=== PATIENT | female | born 1995 | race Caucasian/White ===

== ENCOUNTER → 2020-01-20 14:02 | Outpatient (BNVA) | payer BC, SELFPAY | PROVIDERS: Family Provider Family Medicine; Visit Provider Nurse Practitioner Family | DX: Z20.828 Contact with and (suspected) exposure to other viral communicable diseases (principal); J06.9 Acute upper respiratory infection, unspecified | CPT/HCPCS: 87635 ==

== ENCOUNTER → 2022-06-03 10:39 | Outpatient (BNVA) | payer OTHER, SELFPAY | PROVIDERS: Family Provider Family Medicine; PCP Family Medicine; Visit Provider Family Medicine | DX: Z51.81 Encounter for therapeutic drug level monitoring (principal); Z13.220 Encounter for screening for lipoid disorders; R10.2 Pelvic and perineal pain; N73.9 Female pelvic inflammatory disease, unspecified | CPT/HCPCS: 80053; 80061; 85025; 86141; 87491; 87591; 87624; 87661 ==

== ENCOUNTER 2022-06-04 22:17 | Emergency (ER) | payer OTHER, SELFPAY ==
[2022-06-04 22:36] VITALS: BP 162/104; PULSE 87; RESP 18; TEMP 37.2; O2SAT 99; BMI 43.8
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
[2022-06-05 01:23] VITALS: RESP 16
[2022-06-05] MEDS: ondansetron 4 MG Tablet PO (01:23)
[2022-06-05] MEDS: HYDROmorphone 1 mg/mL INJ 1 mL IM (01:23)
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
== END 2022-06-05 02:22 | disposition home or self-care (01) ==
PROVIDERS: Emergency Provider Emergency Medicine; PCP Family Medicine
DX: S06.0XAA Concussion with loss of consciousness status unknown, initial encounter (principal); S10.93XA Contusion of unspecified part of neck, initial encounter; S00.83XA Contusion of other part of head, initial encounter; Z87.891 Personal history of nicotine dependence; Y04.2XXA Assault by strike against or bumped into by another person, initial encounter
CPT/HCPCS: 70450; 70486; 72125; 96372; 99284; J1170; Q0162

== ENCOUNTER 2022-06-05 16:16 | Emergency (ER) | payer OTHER, SELFPAY ==
[2022-06-05] VITALS (7 sets, daily range): BP systolic 131–172; BP diastolic 75–105; PULSE 59–82; RESP 14–16; TEMP 36.5; O2SAT 94–100; BMI 42.3
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
[2022-06-05] MEDS: sodium chloride 0.9% 1,000 ML 999 ML IV (16:49)
[2022-06-05] MEDS: ketorolac 30 mg/mL INJ 15 MG IVP (16:50)
[2022-06-05] MEDS: metoclopramide 5 mg/mL SDV 2 mL 10 MG IVP (16:51)
[2022-06-05] MEDS: diphenhydrAMINE 50 mg/mL SDV 1mL 12.5 MG IVP (16:52)
[2022-06-05 16:58] LABS: Glucose Point of Care 85 mg/dL (70-110)
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
[2022-06-05] MEDS: morphine 4 mg/mL SDV 1 mL IVP (18:40)
== END 2022-06-05 19:50 | disposition home or self-care (01) ==
PROVIDERS: Emergency Provider Emergency Medicine; PCP Family Medicine
DX: R51.9 Headache, unspecified (principal); F07.81 Postconcussional syndrome; H66.91 Otitis media, unspecified, right ear; F17.210 Nicotine dependence, cigarettes, uncomplicated
CPT/HCPCS: 36416; 70450; 82962; 96361; 96374; 96375; 99285; J1200; J1885; J2270; J2765; J7030

== ENCOUNTER → 2023-02-09 08:00 | Outpatient (BNVA) | payer OTHER, SELFPAY | PROVIDERS: PCP Family Medicine; Referring Provider Family Medicine; Visit Provider Obstetrics & Gynecology | DX: N92.0 Excessive and frequent menstruation with regular cycle (principal) | CPT/HCPCS: 83001; 84146; 84443; 84702; 85025 ==

== ENCOUNTER → 2023-02-22 10:17 | Outpatient (BNVA) | payer OTHER, SELFPAY | PROVIDERS: PCP Family Medicine; Visit Provider Obstetrics & Gynecology | DX: R10.2 Pelvic and perineal pain (principal) | CPT/HCPCS: 76830 ==

== ENCOUNTER → 2023-04-07 11:14 | Outpatient (BNVA) | payer OTHER, SELFPAY | PROVIDERS: PCP Family Medicine; Visit Provider Registered Nurse Neonatal Intensive Care | DX: R39.9 Unspecified symptoms and signs involving the genitourinary system (principal); N12 Tubulo-interstitial nephritis, not specified as acute or chronic | CPT/HCPCS: 81000 ==

== ENCOUNTER 2023-05-30 09:51 | Day surgery (SDC) | payer OTHER, SELFPAY ==
--- NOTE | 2023-05-25 08:38 | ANES.PREANE2 ---
Pre-Anesthetic Assessment Height/Weight: Height 1.73 m Operation Date: 05/30/23 11:10 Proposed Procedures p Hysteroscopy, dilation and curettage 20105,72657 N93.9(Not Applicable) - Jose Rodriguez MD s Dilation And Curettage (D&C)(Not Applicable) - Jose Rodriguez MD Familial anesthetic complications: hard to wake up Social Tobacco (vapes) Exam alert, oriented x 3, clear to auscultation bilaterally and regular rate & rhythm Airway Dentition: other (1 missing) Anesthetic Plan ASA status: 1 Anesthesia: General Risk of > 500 ml blood loss (7ml/kg in children): No Medications/Allergies Home Medications Medication Instructions Recorded Confirmed Last Taken Type sertraline 100 mg tablet 100 mg PO DAILY #30 tabs 04/05/23 05/25/23 05/25/23 Rx Allergies Allergy/AdvReac Type Severity Reaction Status Date / Time promethazine [From Phenergan] Allergy ALGY-Anaphy Verified 04/07/23 11:14 laxis [facility] Anesthesia Medical History Psychiatric care No significant past medical history Surgical History History of tubal ligation 05/2017 - Michael History of cholecystectomy 2008 No significant past surgical history Social History Smoking and tobacco/nicotine status: current every day tobacco/nicotine user Alcohol intake: never Substance/Drug Use: current Current occupation: Works at [employer] Anesthesia Cardiac Studies: No Data to Display
[2023-05-30] VITALS (9 sets, daily range): BP systolic 101–149; BP diastolic 57–87; PULSE 54–73; RESP 16–18; TEMP 36.1–36.5; O2SAT 92–99; BMI 39.5
--- NOTE | 2023-05-30 10:09 | P.ANESUD_ITS ---
Pre-Anesthetic Update Pre-Anesthetic Assessment: Date of Surgery/Procedure: 05/30/23 Preop Vanda gnosis: abnormal uterine bleeding, pelvic pain Proposed Procedure: Operation Date: 05/30/23 11:20 Proposed Procedures p Hysteroscopy, dilation and curettage [id number] N93.9(Not Applicable) - Jose Rodriguez MD s Dilation And Curettage (D&C)(Not Applicable) - Jose Rodriguez MD s Laparoscopy Diagnostic(Not Applicable) - Jose Rodriguez MD Any changes to Pre-Anesthetic Assessment?: No Last Intake: Intake Last Liquid Date 05/29/23 Last Liquid Time 22:00 Last Solid Date 05/29/23 Last Solid Time 22:00 Vitals: Temperature 97.7 F 05/30/23 10:05 Temperature Source Temporal Artery S can 05/30/23 10:05 Pulse Rate 73 05/30/23 10:05 Respiratory Rate 16 05/30/23 10:05 Blood Pressure 145/87 05/30/23 10:05 Blood Pressure Josselin n 106 05/30/23 10:05 Pulse Oximetry 99 05/30/23 10:05 Oxygen Delivery Me thod Room Air 05/30/23 10:06 Exam: Pre-Anes Outpt Exam: alert, oriented x 3, clear to auscultation bilaterally and regular rate & rhythm Cardiac Studies: No Data to Display
[2023-05-30] MEDS: scopolamine 1.5 Patch 1 PATCH TRANSDERMA (10:18)
[2023-05-30] MEDS: sodium chloride 0.9% 500 ML IV (10:19)
[2023-05-30] MEDS: sodium chloride 0.9% 1,000 ML 30 ML IV (10:19)
[2023-05-30 10:30] LABS: OR HCG Qualitative Urine Negative (Negative)
[2023-05-30 10:40] LABS: Basophils % 0.8 %; Eosinophils % 0.8 %; Hematocrit 45.8 % (36-47); Lymphocytes # 1.5 10^3/uL (0.8-4.8); Lymphocytes % 30.5 %; Mean Corpuscular HGB Conc 32.8 g/dL (30-55); Mean Corpuscular Hemoglobin 29.4 pg (27-33); Mean Corpuscular Volume 89.8 fl (85-98); Mean Platelet Volume 12.1 fL (7.4-10.4); Monocytes # 0.3 10^3/uL (0.2-0.9); Monocytes % 5.3 %; Neutrophils # 3.05 10^3/uL (1.8-7.7); Neutrophils % 62.4 %; Nucleated Red Blood Cells % 0 %; Platelet Count 182 10^3/cmm (157-399); Red Cell Distribution Width 12.5 % (12.1-15.1); White Blood Count 4.89 10^3/uL (3.29-11.43)
[2023-05-30 10:43] LABS: Add Urine Microscopic? YES; Bilirubin Urine Neg (Negative); Blood Urine 3+ (Negative); Glucose Urine UA Norm (Normal); Ketones Urine Negative (Negative); Leukocyte Esterase Urine Negative (Negative); Nitrate Urine Negative (Negative); Protein Urine Neg (Negative); Specific Gravity, Urine 1.015 (1.005-1.030); Urine Appearance Clear (CLEAR); Urine Color Yellow (Yellow); Urobilinogen Urine Norm (Negative); pH Urine 7 (5-7)
[2023-05-30 10:55] LABS: Add Urine Culture? No; Mucus Urine 1+ /hpf; RBC Urine 0-4 /hpf (0-2); Squamous Epithelial Cell Urine 0-4 /hpf (0-5); Transitional Epi Cells Urine 0-4 /hpf; WBC Urine 0-4 /hpf (0-5)
[2023-05-30 11:00] LABS: Alanine Aminotransferase 18 U/L (0-33); Albumin Level 4.2 g/dL (3.5-5.2); Alkaline Phosphatase 81 U/L (35-105); Blood Urea Nitrogen 12 mg/dL (6-20); Calcium 9.3 mg/dL (8.5-10.5); Carbon Dioxide 24 mmol/L (22-29); Chloride 105 mmol/L (98-107); Creatinine Clr Calc Pharmacy 186.7641; Globulin 2.7 g/dL (1.3-4.6); Glomerular Filtration Rate 118.2 mL/min (90-130); Glucose 87 mg/dL (65-115); Osmolality Calculated 285 mOsm/kg (285-295); Sodium 138 mmol/L (136-145); Total Bilirubin 0.6 mg/dL (0.15-1.2); Total Protein 6.9 g/dL (6.6-8.7)
[2023-05-30 11:36] LABS: Aspartate Amino Transferase 22 U/L (0-32)
--- NOTE | 2023-05-30 11:51 | W.PM.OPSUD ---
Surgery/Procedure H&P Update DATE OF PROCEDURE: May 30, 2023 DATE H&P PERFORMED: 05/29/23 H&P UPDATE INFORMATION: I have reviewed H&P completed within last 30 days, I have examined patient prior to procedure and No changes to prior documentation PREOP DIAGNOSIS: abnormal uterine bleeding, pelvic pain PLANNED PROCEDURE: Operation Date: 05/30/23 11:20 Proposed Procedures p Hysteroscopy, dilation and curettage [id number] N93.9(Not Applicable) - Jose Rodriguez MD s Dilation And Curettage (D&C)(Not Applicable) - Jose Rodriguez MD s Laparoscopy Diagnostic(Not Applicable) - Jose Rodriguez MD
[2023-05-30] MEDS: ceFAZolin 2,000 MG in sodium chloride 0.9% (plus) 50 ML 100 MG IV (12:31)
[2023-05-30] MEDS: lidocaine-epi 2% PF 1:200,000 20 mL SDV INJECTION (13:08)
--- NOTE | 2023-05-30 13:35 | P.OP_ITS ---
Operative Report Date of procedure: May 30, 2023 Pre-op diagnosis: Abnormal uterine bleeding Pelvic pain Post-op diagnosis: same Post-op findings: Normal pelvic organs, no pathology Proliferative endometrium Procedure done: Diagnostic laparoscopy Hysteroscopy Dilation and curettage via MyoSure Specimens removed/disposition: Endometrial curettings Surgeon: Jose Rodriguez MD Estimated blood loss (mL): 10 IV fluids (mL): 1,000 Urine output (mL): 200 Complications: None Procedure: After informed consent, the patient was taken to the operating room where general anesthesia was administered. The patient was examined under anesthesia and found to have a normal uterus with normal adnexa. She was placed in the dorsal lithotomy position and prepped and draped in sterile fashion. Pre- Procedure Time-Out verifying the correct patient identity, correct procedure verified with consent, correct site and side, correct patient position, availability of correct implants and any special equipment or requirements was performed and acknowledge by the OR team. A weighted speculum was placed in the vagina, and the anterior lip of cervix was grasped with the single toothed tenaculum. A uterine manipulator was advanced into the endocervical. Tenaculum was removed after uterine manipulator was secured. The speculum was removed from the vagina. An intraumbilical incision was made with a scalpel. While tenting up on the abdomen, a Verres needle with sleeve was admitted into the intra-abdominal cavity. A saline drop test was performed and noted to be within normal limits. Pneumoperitoneum was attained with 4 liters of carbon dioxide. The Verres needle was removed. A 5 mm trocar and sleeve were admitted into the abdomen and laparoscopic confirmation of location was achieved, A second incision was made 3 cm above the symphysis pubis, and a 5 mm trocar and sleeve were admitted into the abdomen under direct, laparoscopic visualization without complication. A survey revealed normal abdominal anatomy but pelvic survey shows normal uterus, left and right adnexa. A 5 mm blunt probe was advanced through the second trocar sleeve, and light manipulation of ovaries and uterus to assess the posterior aspects was performed. Carbon dioxide was allowed to escape from the abdomen. The instruments were removed, and skin cover with 3-0 Vicryl and Dermabond. The instruments were removed from the vagina, and excellent hemostasis was noted and proceeded with hysteroscopy. A sterile weight speculum was placed in the vagina. The uterus was then gently sounded to 8 cm, and the cervix was dilated. The 0 degrees MyoSure hysteroscope was advanced gently to the uterine fundus while visualizing the monitor. Survey of the uterine cavity showed: Proliferative endometrium, the fundus shows normal proliferative endometrium; left ostium was visualized, and lateral wall with proliferative endometrium; right ostium visualized, and lateral wall with proliferative endometrium; anterior and posterior srivastava are with proliferative endometrium; endocervical canal is normal. The MyoSure device was advanced and the direct visualization the endometrium was morcellated without complication. At the end of morcellation the fluid deficit was 405 mL and was estimated at approximately 200 mL were on t he floor. There was minimal bleeding noted and the tenaculum removed with goad hemostasis noted. The patient tolerated the procedure well. The patient tolerated the procedure well, and sponge, lap and needle count were correct times two. The patient taken to the recovery room in good condition.
[2023-05-30] MEDS: ondansetron 2 mg/ML SDV 2 mL 4 MG IVP (13:50)
[2023-05-30] MEDS: fentaNYL 50 mcg/mL INJ 2mL IVP (13:55)
[2023-05-30] MEDS: HYDROcodone-acetaminophen 5-325 mg Tablet 1 TAB PO (14:35)
--- NOTE | 2023-05-30 15:00 | ANE.PACU2 ---
Inpatient post-anesthesia follow up: Airway intact: Yes Vital signs: Temperature 97.4 F Pulse Rate 64 Respiratory Rate 18 Blood Pressure 101/60 Pulse Oximetry 96 Oxygen Delivery Me thod Room Air Oxygen Flow Rate 6 Fraction of Inspir ed Oxygen Hydration adequate: Yes Nausea and vomiting: No Pain level: 1 Mental status: Baseline
--- NOTE | 2023-05-30 15:05 | PC.NURSE ---
Patient discharged in stable condition with mother at bedside, patient iv removed, vital signs within normal limtis, patient denies questions at this time, patient received pain medication from pharmacy, pt wheeled out to private vehicle. patient to call clinic withs follow up visit. patient given x1 pain pill for c/o abd cramping and pain. reviewed with patient s/sx of infection.
== END 2023-05-30 15:00 | disposition home or self-care (01) ==
PROVIDERS: PCP Family Medicine; Visit Provider Obstetrics & Gynecology
PROC: 0UJD8ZZ Inspection of Uterus and Cervix, Via Natural or Artificial Opening Endoscopic (ICD-10-PCS; CPT 58555; principal; 2023-05-30 11:00)
PROC: (CPT 58120; 2023-05-30 11:00)
PROC: (CPT 49320; 2023-05-30 11:00)
DX: N92.1 Excessive and frequent menstruation with irregular cycle (principal); F17.200 Nicotine dependence, unspecified, uncomplicated
CPT/HCPCS: 58558; 36415; 80053; 81001; 81025; 84703; 85025; 86850; 86900; 88305; J0690; J1100; J1170; J2250; J2405; J2704; J2710; J3010; J3490; J7030; J7040

== ENCOUNTER → 2024-03-16 18:14 | Outpatient (BNVA) | payer OTHER, SELFPAY | PROVIDERS: PCP Family Medicine | DX: S99.912A Unspecified injury of left ankle, initial encounter (principal); W22.8XXA Striking against or struck by other objects, initial encounter | CPT/HCPCS: 73610 ==

== ENCOUNTER → 2024-04-25 09:54 | Outpatient (BNVA) | payer OTHER, SELFPAY | PROVIDERS: PCP Family Medicine; Visit Provider Family Medicine | DX: R39.9 Unspecified symptoms and signs involving the genitourinary system (principal) | CPT/HCPCS: 81000 ==

== ENCOUNTER → 2024-06-05 11:17 | Outpatient (BNVA) | payer OTHER, SELFPAY | PROVIDERS: PCP Family Medicine; Visit Provider Family Medicine | DX: E55.9 Vitamin D deficiency, unspecified (principal); Z00.00 Encounter for general adult medical examination without abnormal findings; R53.81 Other malaise; R53.83 Other fatigue; Z51.81 Encounter for therapeutic drug level monitoring | CPT/HCPCS: 80053; 82306; 84439; 84443; 85025; 86592; 87491; 87591; 87624; 87661; 87806 ==

== ENCOUNTER → 2024-07-25 13:33 | Outpatient (BNVA) | payer SELFPAY | PROVIDERS: PCP Family Medicine; Visit Provider Obstetrics & Gynecology | DX: R87.619 Unspecified abnormal cytological findings in specimens from cervix uteri (principal) | CPT/HCPCS: 81025 ==

== ENCOUNTER → 2024-08-26 13:49 | Outpatient (BNVA) | payer OTHER, SELFPAY | PROVIDERS: PCP Family Medicine; Visit Provider Obstetrics & Gynecology | DX: R87.619 Unspecified abnormal cytological findings in specimens from cervix uteri (principal); N72 Inflammatory disease of cervix uteri | CPT/HCPCS: 81025; 88305; 88342 ==

== ENCOUNTER → 2024-10-16 09:52 | Outpatient (BNVA) | payer OTHER, SELFPAY | PROVIDERS: PCP Family Medicine; Visit Provider Family Medicine | DX: Z01.818 Encounter for other preprocedural examination (principal) | CPT/HCPCS: 80053; 85007; 85027 ==

== ENCOUNTER 2024-10-22 09:31 | Inpatient (IN) | payer SELFPAY ==
[2024-10-22] VITALS (21 sets, daily range): BP systolic 104–173; BP diastolic 64–95; PULSE 53–80; RESP 12–20; TEMP 36.3–36.8; O2SAT 94–100; BMI 36.5
--- NOTE | 2024-10-22 00:50 | P.HP_ITS ---
Same Day Surgery H&P Indication for Procedure/HPI DATE OF PROCEDURE: October 22, 2024 CHIEF COMPLAINT/INDICATIONFOR SURGICAL PROCEDURE: 29 y.o. h/o constant pelvic pain and frequent abnormal uterine bleeding now scheduled for hysterectomy PREOP DIAGNOSIS: menometrorrhagia PLANNED PROCEDURE: Operation Date: 10/22/24 07:00 Proposed Procedures p Laparoscopic Assist Vaginal Hysterectomy 34149, N94.6 N92.1 N93.9 R10.2 R87.619(Not Applicable) - Hamzah Fu MD Medications/Allergies* Home Medications ?Medication ?Instructions ?Recorded ?Confirmed ?Type multivitamin 1 tab PO DAILY 06/05/2410/04 History Lactobacillus 25 billion cap PO 07/25/24 10/16/24 His tory cell-Bifido 25 billion beda-RPC-wipqi capsule biotin 2,500 mcg capsule 2,500 mcg PO DAILY 07/25/24 10/21/24 History ferrous sulfate 325 mg (65 mg 325 mg PO DAILY 07/25/24 10/21/24 History iron) tablet (FeroSul) Allergies/Adverse Reactions Allergy/AdvReac Type Severity Reaction Status Date / Time promethazine (From Phenergan) Allergy ALGY-Anaphy Verified 10/21/24 11:08 laxis Pertinent History/Comorbid Conditions* Medical History (Updated 07/25/24 @ 16:48 by Akin Olson MD) No significant past medical history Surgical History (Updated 06/05/24 @ 10:53 by Akin Olson MD) History of dilation and curettage History of tubal ligation 05/2017 - Albino History of cholecystectomy 2008 No significant past surgical history Family History (Updated 08/26/24 @ 13:58 by Denita Russell CMA) Uterine cancer Grandmother Social History Smoking and tobacco/nicotine status: current every day tobacco/nicotine user e-cigarettes Alcohol intake: current Alcohol intake frequency: holidays/special occasions only Substance/Drug Use: current Current occupation: Works at [employer] Pertinent Exam Findings alert, oriented x 3, clear to auscultation bilaterally and regular rate & rhythm Recommendations Surgery/Procedure today Coding Level of Care Code Acute Code for Chg Fwd
[2024-10-22 06:19] LABS: OR HCG Qualitative Urine Negative (Negative)
--- NOTE | 2024-10-22 06:44 | ANES.PREANE2 ---
Pre-Anesthetic Assessment Height/Weight: Height 1.73 m Weight 108.862 kg Temp Pulse Resp BP Pulse Ox O2 Del Method 97.4 F L 71 18 122/78 98 Room Air 10/22/24 06:19 10/22/24 06:19 10/22/24 06:19 10/22/24 06:19 10/22/24 06:19 10/22/24 06:21 Preop Diagnosis: menorrhagia Operation Date: 10/22/24 07:00 Proposed Procedures p Laparoscopic Assist Vaginal Hysterectomy 65776, N94.6 N92.1 N93.9 R10.2 R87.619(Not Applicable) - Hamzah Fu MD Familial anesthetic complications: PONV Was Beta Kasie taken within 24 hours: N/A Was Clonidine taken within 24 hours: N/A Last intake: Intake Last Liquid Date 10/21/24 Last Liquid Time 18:00 Last Solid Date 10/21/24 Last Solid Time 18:00 Social No alcohol and No tobacco Exam alert, oriented x 3, clear to auscultation bilaterally and regular rate & rhythm L TMJ on chart review Airway Mallampati: Class I Dentition: full Metabolic Morbid Obesity Anesthetic Plan ASA status: 2 Anesthesia: General Risk of > 500 ml blood loss (7ml/kg in children): No Medications/Allergies Home Medications ?Medication ?Instructions ?Recorded ?Confirmed ?Last Taken ?Type multivitamin 1 tab PO DAILY 06/05/24 10/21/24 10/20/24 History cholecalciferol (vitamin D3) 50 50 mcg PO DAILY #30 caps 06/18/24 10/21/24 10/20/24 Rx mcg (2,000 unit) capsule citalopram 20 mg tablet 20 mg PO DAILY #30 tabs 07/10/24 10/21/24 10/20/24 Rx Lactobacillus 25 billion cap PO 07/25/24 10/16/24 10/20/24 History cell-Bifido 25 billion cswb-ZTW-[id number] capsule biotin 2,500 mcg capsule 2,500 mcg PO DAILY 07/25/24 10/21/24 10/20/24 History ferrous sulfate 325 mg (65 mg 325 mg PO DAILY 07/25/24 10/21/24 10/20/24 History iron) tablet (FeroSul) Allergies Allergy/AdvReac Type Severity Reaction Status Date / Time promethazine (From Phenergan) Allergy ALGY-Anaphy Verified 10/22/24 06:18 laxis [facility] Anesthesia Medical History No significant past medical history Surgical History History of dilation and curettage History of tubal ligation 05/2017 - Albino History of cholecystectomy 2008 No significant past surgical history Family History (Updated 08/26/24 @ 13:58 by Denita Russell CMA) Grandmother Uterine cancer Social History Smoking and tobacco/nicotine status: current every day tobacco/nicotine user e-cigarettes Alcohol intake: current Alcohol intake frequency: holidays/special occasions only Substance/Drug Use: current Current occupation: Works at [employer] Female Reproductive History Date of last menstrual period: 10/04/24
--- NOTE | 2024-10-22 06:51 | W.PM.OPSUD ---
Surgery/Procedure H&P Update DATE OF PROCEDURE: October 22, 2024 DATE H&P PERFORMED: 10/22/24 H&P UPDATE INFORMATION: I have reviewed H&P completed within last 30 days, I have examined patient prior to procedure and No changes to prior documentation PREOP DIAGNOSIS: menorrhagia PLANNED PROCEDURE: Operation Date: 10/22/24 07:00 Proposed Procedures p Laparoscopic Assist Vaginal Hysterectomy 92785, N94.6 N92.1 N93.9 R10.2 R87.619(Not Applicable) - Hamzah Fu MD
[2024-10-22] MEDS: ceFAZolin 2,000 mg SDV 2000 MG IVP (06:59)
[2024-10-22] MEDS: metroNIDAZOLE IV 500 MG/100 ML PREMIX 100 MG IV (07:00)
--- NOTE | 2024-10-22 08:13 | SUR.OPER ---
called and updated mother of surgical progress.
[2024-10-22] MEDS: BUPivacaine 0.5% INJ 30 mL XX (08:15)
[2024-10-22] MEDS: BUPivacaine liposome 13.3 mg/mL SDV 20 mL 266 MG INFILTRATI (08:16)
--- NOTE | 2024-10-22 09:15 | PM.OP2 ---
Brief Operative Note Date of procedure: 10/22/24 Pre-op diagnosis: menorrhagia Post-op diagnosis: same Procedure Done: total abdominal hysterectomy Surgeon: Hamzah Fu Estimated blood loss (mL): 200 Complications: none Post-op Plan: floor
[2024-10-22] MEDS: ondansetron 2 mg/ML SDV 2 mL 4 MG IVP ×2 (09:40→18:47)
[2024-10-22] MEDS: fentaNYL 50 mcg/mL INJ 2mL IVP (09:53)
--- NOTE | 2024-10-22 10:05 | PM.OP ---
Operative Report Date of procedure: October 22, 2024 Pre-op diagnosis: menometrorrhagia Post-op diagnosis: same Post-op findings: Normal-sized uterus Normal fallopian tubes Normal ovaries Normal and intact bladder Procedure done: Total abdominal hysterectomy Bilateral salpingectomy Specimens removed/disposition: uterus bilateral fallopian tubes Surgeon: Hamzah Fu MD Anesthesia: General Estimated blood loss (mL): 200 Complications: none Findings: see above Condition: stable Disposition: PACU Brief History: 29 y.o. with chronic menometrorrhagia Procedure: The patient was taken to the operating room and placed supine on the table. General endotracheal anesthesia was induced. The abdomen was prepped and draped in the usual sterile fashion. A lawler catheter was placed which drained clear urine. A pfannenstiel incision was made and carried down through skin and subcutaneous tissue and fascia. The fascia was sharply incised. The rectus muscles were and the abdomen was entered bluntly in the midline. The pelvic contents were visualized and examined. An Cuauhtemoc-O retractor was placed. The bowels were packed out of the way. The Ligasure device was used throughout for vessel sealing and cutting. The hysterectomy was begun by dividing and ligating the round ligaments bilaterally. The infundibulopelvic ligaments were divided and skeletonized bilaterally. The ovaries were preserved by dividing the uterus from the uteroovarian ligaments. The vesicouterine peritoneal fold was incised in a transverse curvilinear fashion and sharply dissected downward mobilizing the bladder off the lower uterine segment. The uterine vessels were skeletonized and bilaterally divided and ligated. The procedure was carried down on both sides of the uterus until the cardinal uterosacral ligament was reached. The cervix was then incised. The vaginal cuff was identified and the mucosa was from the cervix. In this fashion, the uterus was removed leaving the vaginal cuff. The vaginal cuff was identified and the mucosa was sewn with O-Vicryl. The pelvis was inspected and irrigated. There was no bleeding. Bilateral salpingectomy was performed using the Ligasure device. There was no bleeding. The abdominal packs were removed as was the retractor. The fascia was then closed with a continuous stitch of O-Vicryl. The subcutaneous tissue was irrigated and inspected for hemostasis. The skin was then reapproximated using Insorb absorbable subcuticular skin angle. The patient was then placed supine, extubated, and taken to the recovery room. Postoperative condition: stable EBL: 200 cc Complications: none Sponge, needle, instruments counts were correct x two.
--- NOTE | 2024-10-22 10:10 | ANE.PACU2 ---
Inpatient post-anesthesia follow up: Airway intact: Yes Vital signs: Temperature 97.6 F Pulse Rate 60 Respiratory Rate 16 Blood Pressure 99/61 Pulse Oximetry 99 Oxygen Delivery Me thod Room Air Oxygen Flow Rate 8 Fraction of Inspir ed Oxygen Hydration adequate: Yes Nausea and vomiting: No Pain level: 1 Mental status: Baseline
--- NOTE | 2024-10-22 10:30 | PC.NURSE ---
1022 - accepted into room 10 with Tamara RN at side - BP 145/87 pulse 75 temp 97.6 - 0299%
[2024-10-22] MEDS: HYDROcodone-acetaminophen 5-325 mg Tablet PO ×2 (12:26→18:39)
--- NOTE | 2024-10-22 18:57 | PC.NURSE ---
Pt receieved 2 norco tabs at 1839 for pain, approximately 5min later pt became nauseous and vomited a moderate amount. This nurse was unable to tell if the tablets were in the vomit as well.
[2024-10-22] MEDS: morphine 4 mg/mL SDV 1 mL 2 MG IVP (19:03)
[2024-10-22] MEDS: LORazepam 1 MG/0.5 ML injection IVP (20:37)
[2024-10-22] MEDS: fentaNYL 50 mcg/mL INJ 2mL 25 MCG IVP (20:39)
[2024-10-23 03:02] VITALS: BP 99/61; PULSE 60; RESP 16
[2024-10-23 06:00] VITALS: TEMP 36.4
[2024-10-23 06:07] LABS: Hematocrit 38.0 % (36-47); Hemoglobin 12.70 g/dL (11.27-16.99); Mean Corpuscular HGB Conc 33.4 g/dL (30-55); Mean Corpuscular Hemoglobin 29.7 pg (27-33); Mean Corpuscular Volume 88.8 fl (85-98); Platelet Count 165 10^3/cmm (157-399); Red Blood Count 4.28 10^6/uL (3.85-5.65); White Blood Count 11.42 10^3/uL (3.29-11.43)
[2024-10-23 09:29] VITALS: BP 138/74; PULSE 82; RESP 16; TEMP 36.6; TEMP 36.7; O2SAT 98
[2024-10-23] MEDS: HYDROcodone-acetaminophen 5-325 mg Tablet PO (11:58)
[2024-10-23 14:04] VITALS: BP 117/72; PULSE 82; RESP 16; TEMP 36.8; O2SAT 98
--- NOTE | 2024-10-23 14:10 | P.PN_ITS ---
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 General comfortable Lungs: clear Cor: RRR Abd: soft, nontender. Wound clean and dry Ext: normal Urinary Catheter Management: Melgar: Cath Placed During This Visit: yes, but has since been removed by the nurse Reason for Continuing Indwelling Catheter: Decision to DC Catheter Urinary Catheter Date of Insertion: 10/22/24 Date Urinary Catheter Removed: 10/23/24 Time Urinary Catheter Discontinued: 06:00 Data 10/23/24 06:00 A&P Assessment and plan 1. History of total abdominal hysterectomy: POD #1 TINO, bilateral salpingectomy Doing well Plan discharge to home today Call / return if fever, chills, nausea, vomiting, abdominal pain, vaginal bleeding, painful urination, chest pain, shortness of breath, leg swelling PDMP PDMP Reviewed: Last Reviewed 10/23/24 13:51 EDT by Hamzah Fu MD Attestations 2 Medical Necessity Statement*: patient s/p hysterectomy, plan discharge to home today Coding Level of Care Code Acute Code for Chg Fwd Diagnoses History of total abdominal hysterectomy Z90.710
--- NOTE | 2024-10-23 14:20 | PM.OBGYDC ---
Discharge Providers LITHODUPLICATOR OPERATOR Date of Admission: 10/22/24 09:31 Date of Discharge: 10/23/24 Attending Provider at Admission: Hamzah Fu MD Attending Provider at Discharge: Hamzah Fu MD Consults: none Primary LITHODUPLICATOR OPERATOR: Hamzah Fu MD Primary Care Provider: Akin Olson MD Diagnoses at Discharge Discharge Diagnosis 1. History of total abdominal hysterectomy: Details from hospital stay: 29 y.o. with h/o chronic pelvic pain and menometrorrhagia admitted for hysterectomy total abdominal hysterectomy and bilateral salpingectomy was done without any complications patient did well postop and was discharged to home on the first postoperative day Reason for Visit Reason for Visit: N94.6 Brief History: 29 y.o. with h/o chronic pelvic pain and menometrorrhagia admitted for hysterectomy Hospital Course Hospital Course 29 y.o. with h/o chronic pelvic pain and menometrorrhagia admitted for hysterectomy total abdominal hysterectomy and bilateral salpingectomy was done without any complications patient did well postop and was discharged to home on the first postoperative day Physical Exam Narrative: Weight 240 lbs; 5?8? General comfortable Lungs: clear Cor: RRR Abd: soft, nontender. Wound clean and dry Ext: normal Urinary Catheter Management: Melgar: Cath Placed During This Visit: yes, but has since been removed by the nurse Reason for Continuing Indwelling Catheter: Decision to DC Catheter Urinary Catheter Date of Insertion: 10/22/24 Date Urinary Catheter Removed: 10/23/24 Time Urinary Catheter Discontinued: 06:00 History History History 5 Term 4 0 Miscarriages/Ectopic 1 Living Children 4 Discharge Data Studies Completed and Pending Completed Studies During Hospitalization Category Date Time Status Pathology: Surgical [PTH] Routine Pth 10/22/24 08:41 Completed Laboratory Results WBC 11.42 10^3/uL (3.29-11.43) 10/23/24 06:00 RBC 4.28 10^6/uL (3.85-5.65) 10/23/24 06:00 Hgb 12.70 g/dL (11.27-16.99) 10/23/24 06:00 Hct 38.0 % (36-47) 10/23/24 06:00 MCV 88.8 fl (85-98) 10/23/24 06:00 MCH 29.7 pg (27-33) 10/23/24 06:00 MCHC 33.4 g/dL (30-55) 10/23/24 06:00 RDW 12.2 % (12.1-15.1) 10/23/24 06:00 Plt Count 165 10^3/cmm (157-399) 10/23/24 06:00 MPV 11.6 fL (7.4-10.4) H 10/23/24 06:00 Urine HCG, Qual Negative (Negative) 10/22/24 06:12 Blood Type A Positive 10/22/24 06:28 Rho(D) Type Rh positive 10/22/24 06:28 Antibody Screen Negative 10/22/24 06:28 Procedures Performed Total abdominal hysterectomy and bilateral salpingectomy Vitals Last Vital Signs Temp 98.3 F 10/23/24 14:04 Pulse 82 10/23/24 14:04 Resp 16 10/23/24 14:04 BP 117/72 10/23/24 14:04 Pulse Ox 98 10/23/24 14:04 O2 Del Method Room Air 10/23/24 09:29 O2 Flow Rate 8 10/22/24 09:29 Results Labs OB ([facility]): Blood Type A Positive 10/22/24 Antibody Screen Negative 10/22/24 Hct, (36-47) 42.6 % 10/30/24 Hgb, (11.27-16.99) 14.00 g/dL 10/30/24 Rho(D) Type Rh positive 10/22/24 Plt Count, (157-399) 242 10^3/cmm 10/30/24 HIV 1&2 Ab & HIV 1 Ag, (Non-Reactiv) Non-reactive 06/05/24 TSH, (0.27-4.20) 3.69 uIU/mL 06/05/24 Free T4, (0.82-1.77) 0.98 ng/dL 06/05/24 HCG, Qual, (Negative) Negative 08/26/24 Pap Smear Interpret See note A 06/05/24 Discharge Plan Discharge Patient Disposition: Home Condition: Stable Prescriptions: Continued ferrous sulfate [FeroSul] 325 mg (65 mg iron) tablet 325 mg PO DAILY biotin 2,500 mcg capsule 2,500 mcg PO DAILY multivitamin Tablet 1 tab PO DAILY citalopram 20 mg tablet 20 mg PO DAILY Qty: 30 6RF cholecalciferol (vitamin D3) 50 mcg (2,000 unit) capsule 50 mcg PO DAILY Qty: 30 6RF No Action ketorolac 10 mg tablet 10 mg PO TID PRN (Reason: pain) Qty: 60 1RF Discharge Order = DC NOW: Discharge Order (Routine); Ordered 10/23/24 Ordered By: Hamzah Fu Referrals: Hamzah Fu MD [Physician, LITHODUPLICATOR OPERATOR] - 10/31/24 11:00 am Discharge Diet: Usual diet Discharge Activity: Increase activity as tolerated Patient Instructions: Acute Wound Care (DC), Opioid Safety (DC), Hysterectomy (GEN), Vaginal Hysterectomy (DC), OB Discharge Report, OB Food/Drug Interaction Guide, Opioid Safety, Post Anesthesia Care, Patient Portal & Ravindra Instructions Discharge Attestations LITHODUPLICATOR OPERATOR Time Spent in Discharge Care*: less than 30 min Coding Level of Care Code Acute Code for Chg Fwd Diagnoses History of total abdominal hysterectomy Z90.710
== END 2024-10-23 14:40 | disposition home or self-care (01) | DRG 743 ==
LOC: OBGYN 15:36
PROVIDERS: Anesthesiology; Admitting Provider Obstetrics & Gynecology; PCP Family Medicine; Visit Provider Obstetrics & Gynecology
PROC: 0UT90ZZ Resection of Uterus, Open Approach (ICD-10-PCS; CPT 58150; 2024-10-22 07:00)
DX: N92.0 Excessive and frequent menstruation with regular cycle (principal); F17.290 Nicotine dependence, other tobacco product, uncomplicated
CPT/HCPCS: 36415; 81025; 85027; 86850; 86900; 88307; A4216; J0666; J0690; J1100; J1171; J1200; J1885; J2060; J2250; J2270; J2405; J2704; J3010; J3490; J7030; J7040; J7121; J9999

== ENCOUNTER 2024-10-26 00:45 | Emergency (ER) | payer OTHER, SELFPAY ==
[2024-10-26 01:03] VITALS: BP 170/92; PULSE 94; RESP 18; TEMP 36.6; O2SAT 99; BMI 34.0
--- NOTE | 2024-10-26 01:27 | CTR_ITS ---
PROCEDURE INFORMATION: Exam: CT Abdomen And Pelvis With Contrast Exam date and time: 10/26/2024 1:52 AM Age: 29 years old Clinical indication: Abdominal pain; Localized; Right lower quadrant (rlq); Prior surgery; Surgery date: 3-7 days post-operative; Surgery type: Total hysterectomy 10/22/2024. Gb; C/O rlq/pelvic pain post total hysterectomy on 10/22/2024. ; Additional info: Rlq pain S/P hysterectomy, radicular pain to rle TECHNIQUE: Imaging protocol: Computed tomography of the abdomen and pelvis with contrast. Radiation optimization: All CT scans at this facility use at least one of these dose optimization techniques: automated exposure control; mA and/or kV adjustment per patient size (includes targeted exams where dose is matched to clinical indication); or iterative reconstruction. Contrast material: OMNI 350; Contrast volume: 100 ml; Contrast route: INTRAVENOUS (IV); COMPARISON: US transvaginal [id number] 02/22/2023 10:27 AM RADIATION DOSE METRICS: Total DLP (mGy-cm): 1078.77 FINDINGS: Liver: No discrete liver lesions are apparent. Smooth hepatic contour. Gallbladder and biliary ducts: Prior cholecystectomy with resultant biliary ductal prominence. Pancreas: No evidence of pancreatitis. No ductal dilation. Spleen: The spleen is enlarged. Adrenal glands: Adrenal glands are within expected limits. Kidneys and ureters: Subcentimeter left renal cortical cyst. Right kidney unremarkable. No stones or hydronephrosis. Stomach and bowel: Small bowel is normal caliber. No obstruction. Large bowel within normal limits. No inflammatory wall thickening or abnormal bowel dilatation. Appendix: No evidence of appendicitis. Intraperitoneal space: No free air. No significant fluid collection. Vasculature: No abdominal aortic aneurysm. Lymph nodes: No pathologically enlarged lymph nodes by CT size criteria. Urinary bladder: Tiny focus of gas in the urinary bladder which is otherwise unremarkable. This is presumably from recent instrumentation. Reproductive: Postsurgical changes of very recent hysterectomy. No evidence of abscess. Some residual fat stranding and trace fluid in the hysterectomy bed. There is also some residual soft tissue gas in the superficial tissues of the low ventral abdomen/pelvis at site of incision. Bones/joints: No acute osseous abnormalities. Soft tissues: See Reproductive finding. CT/CT abdomen pelvis w con* [id number] IMPRESSION: 1. Very recent hysterectomy changes persists of the superficial tissues of the ventral lower abdomen/pelvis and within the hysterectomy bed. No evidence of abscess, however. 2. Tiny focus of urinary bladder lumen gas, presumably from recent instrumentation. 3. Mild splenomegaly. COMMENTS: Consistent with the [employer]'s Incidental Findings Committee white paper (J Am Gonzalo Radiol 2018): Any incidental renal lesion less than 1 cm or classified as too small to characterize, or any incidental cystic renal lesion characterized as simple-appearing, is likely benign. No follow-up imaging is recommended for these lesions per consensus recommendations based on imaging criteria.
--- NOTE | 2024-10-26 01:28 | W.ED.ABDPA2 ---
HPI - Abdominal Pain General: Chief Complaint: Abdominal Pain Stated Complaint: surg tues. no poop, suden knot today n groin Time Seen by Provider: 10/26/24 01:12 History of Present Illness: 29-year-old female who is status post hysterectomy now 5 days ago. This was done via abdominal approach. She had done well until last evening. She started complain of right lower quadrant pain. It radiates into her back. She is nauseated. Pain radiates into her right hip, and down her right lower extremity where she is experiencing intermittent paresthesias. She is not experiencing spine pain. She states that she has run a temperature of 99 degrees or so on and off all week. She has a cough productive of some frothy clear to white sputum intermittently she denies trauma or strain to the area prior to increased pain. No discharge from her surgical site. Related Data Home Medications ?Medication ?Instructions ?Recorded ?Confirmed multivitamin 1 tab PO DAILY 06/05/24 10/21/24 Lactobacillus 25 billion cap PO 07/25/24 10/16/24 cell-Bifido 25 billion ghyo-ULK-jssao capsule biotin 2,500 mcg capsule 2,500 mcg PO DAILY 07/25/24 10/21/24 ferrous sulfate 325 mg (65 mg 325 mg PO DAILY 07/25/24 10/21/24 iron) tablet (FeroSul) Previous Rx's ?Medication ?Instructions ?Recorded cholecalciferol (vitamin D3) 50 50 mcg PO DAILY #30 caps 06/18/24 mcg (2,000 unit) capsule citalopram 20 mg tablet 20 mg PO DAILY #30 tabs 07/10/24 oxycodone-acetaminophen 5 mg-325 1 tab PO Q6H PRN pain #30 tabs 25 mg tablet (Percocet) ketorolac 10 mg tablet 10 mg PO TID PRN pain #10 tabs 10/26/24 Allergies Allergy/AdvReac Type Severity Reaction Status Date / Time promethazine (From Phenergan) Allergy ALGY-Anaphy Verified 10/22/24 06:18 laxis [facility], [facility] ED PFSH: Medical History No significant past medical history Surgical History History of dilation and curettage History of tubal ligation 05/2017 - Albino History of cholecystectomy 2009 No significant past surgical history Family History (Updated 08/26/24 @ 13:58 by Denita Russell CMA) Grandmother Uterine cancer Social History Smoking and tobacco/nicotine status: current every day tobacco/nicotine user e-cigarettes Alcohol intake: current Alcohol intake frequency: holidays/special occasions only Substance/Drug Use: current Current occupation: Works at [employer] Physical Exam Const: GENERAL APPEARANCE: cooperative and anxious; not frail appearing HENMT: COMMON NORMALS: normocephalic, atraumatic and Normal external nose present HEAD & SCALP: normocephalic and atraumatic FACE & SINUS: normal facial exam and face symmetric NOSE: Normal external nose present Eye: COMMON NORMALS: Equal, round and reactive pupils present and EOMs intact bilaterally PUPIL: Yes Equal, round and reactive pupils present Neck/C-Spine: GENERAL: Yes trachea midline Chest: CHEST: Yes Symmetrical chest wall rise Resp: COMMON NORMALS: normal respiratory effort, No retractions, No use of accessory muscles and clear to auscultation bilaterally AUSCULTATION: clear to auscultation bilaterally Cardio: COMMON NORMALS: regular rate and regular rhythm RATE: regular rate RHYTHM: regular rhythm GI: COMMON NORMALS: Soft to palpation PALPATION: Yes Soft to palpation, Yes Tenderness to palpation present (GI) Details: RLQ and Yes Guarding due to palpation present (GI) in the RLQ Extremity: COMMON NORMALS: no pedal edema Neuro: JAZMINE COMA SCALE: document GCS findings Jazmine coma scale eye opening: Spontaneous [place] coma scale verbal response: Orientated [place] coma scale motor response: Obey commands Jazmine coma scale total score: 15 SENSORY EXAM: Yes extremities (intact) Psych: COMMON NORMALS: speech normal SPEECH: Yes normal speech Skin: NARRATIVE SKIN EXAM: Incision is closed. No leakage. Some ecchymosis surrounding. No erythema or cellulitis. Course Vital Signs: Vital signs: Vital Signs Temperature 98 F 10/26/24 01:03 Pulse Rate 76 10/26/24 02:33 Respiratory Rate 18 10/26/24 01:44 Blood Pressure 138/63 10/26/24 02:33 Pulse Oximetry 96 10/26/24 02:33 Oxygen Delivery Me thod Room Air 10/26/24 02:33 MDM - Abdominal Pain Medical Decision Making Pain is much improved after morphine and Toradol. Vitals are normal currently. She is afebrile. CBC is normal. BMP is normal. She does have some fat stranding surrounding her incision on CT scan. No overt cellulitis on exam in viewing of the incision. There is no fluid collection or abscess by CT. No evidence of complication. With improvement in her pain, she will be placed on Toradol, continue her pain medication. This should help. Return for worsening symptoms. Call her doctor Monday. Lab Data 10/26/24 01:27 10/26/24 01:27 Labs/Radiology: Radiology Impressions Abdomen/Pelvis CT 10/26/24 01:27 IMPRESSION: 1. Very recent hysterectomy changes persists of the superficial tissues of the ventral lower abdomen/pelvis and within the hysterectomy bed. No evidence of abscess, however. 2. Tiny focus of urinary bladder lumen gas, presumably from recent instrumentation. 3. Mild splenomegaly. COMMENTS: Consistent with the [employer]'s Incidental Findings Committee white paper (J Am Gonzalo Radiol 2018): Any incidental renal lesion less than 1 cm or classified as too small to characterize, or any incidental cystic renal lesion characterized as simple-appearing, is likely benign. No follow-up imaging is recommended for these lesions per consensus recommendations based on imaging criteria. Laboratory Results WBC 7.22 10^3/uL (3.29-11.43) 10/26/24 01:27 RBC 4.25 10^6/uL (3.85-5.65) 10/26/24 01:27 Hgb 12.50 g/dL (11.27-16.99) 10/26/24 01:27 Hct 38.0 % (36-47) 10/26/24 01:27 MCV 89.4 fl (85-98) 10/26/24 01:27 MCH 29.4 pg (27-33) 10/26/24 01: MCHC 32.9 g/dL (30-55) 10/26/24 01:27 RDW 12.2 % (12.1-15.1) 10/26/24 01:27 Plt Count 165 10^3/cmm (157-399) 10/26/24 01:27 MPV 10.9 fL (7.4-10.4) H 10/26/24 01:27 Neut % (Auto) 70.4 % 10/26/24 01:27 Lymph % (Auto) 19.3 % 10/26/24 01:27 [place] % (Auto) 6.4 % 10/26/24 01:27 Eos % (Auto) 3.5 % 10/26/24 01:27 Baso % (Auto) 0.3 % 10/26/24 01:27 Neut # (Auto) 5.09 10^3/uL (1.8-7.7) 10/26/24 01:27 Lymph # (Auto) 1.4 10^3/uL (0.8-4.8) 10/26/24 01: [place] # (Auto) 0.5 10^3/uL (0.2-0.9) 10/26/24 01:27 Eos # (Auto) 0.3 10^3/uL (0.0-0.8) 10/26/24 01: Baso # (Auto) 0.0 10^3/uL (0.0-0.1) 10/26/24 01:27 Nucleated RBC % (auto) 0 % 10/26/24 01: Nucleated RBCs # 0.0 /100WBC 10/26/24 01:27 Sodium 137 mmol/L (136-145) 10/26/24 01:27 Potassium 3.8 mmol/L (3.5-5.1) 10/26/24 01:27 Chloride 101 mmol/L (98-107) 10/26/24 01:27 Carbon Dioxide 26 mmol/L (22-29) 10/26/24 01:27 Anion Gap 13.8 (5-19) 10/26/24 01:27 BUN 12 mg/dL (6-20) 10/26/24 01:27 Creatinine 0.7 mg/dL (0.5-0.9) 10/26/24 01:27 GFR Calculation 98.3 mL/min (90-130) 10/26/24 01:27 Glucose 103 mg/dL (65-115) 10/26/24 01:27 Calculated Osmolality 284 mOsm/kg (285-295) L 10/26/24 01:27 Lactic Acid 0.6 mmol/L (0.5-2.2) 10/26/24 01:27 Calcium 9.0 mg/dL (8.5-10.5) 10/26/24 01:27 Total Bilirubin 0.4 mg/dL (0.15-1.2) 10/26/24 01:27 AST 14 U/L (0-32) 10/26/24 01:27 ALT 17 U/L (0-33) 10/26/24 01:27 Alkaline Phosphatase 74 U/L (35-105) 10/26/24 01:27 C-Reactive Protein 67.6 mg/L (0.0-4.9) H 10/26/24 01:27 Total Protein 7.0 g/dL (6.6-8.7) 10/26/24 01: Albumin 4.0 g/dL (3.5-5.2) 10/26/24 01: Globulin 3.0 g/dL (1.3-4.6) 10/26/24 01: Lipase 15 U/L (13-60) 10/26/24 01:27 Urine Color Yellow (Yellow) 10/26/24 02:25 Urine Appearance Clear (CLEAR) 10/26/24 02:25 Urine pH 7.0 (5-7) 10/26/24 02:25 Ur Specific [place] 1.039 (1.005-1.030) H 10/26/24 02:25 Urine Protein Negative (Negative) 10/26/24 02:25 Urine Glucose (UA) Negative (Normal) 10/26/24 02:25 Urine Ketones Negative (Negative) 10/26/24 02:25 Urine Blood Negative (Negative) 10/26/24 02:25 Urine Nitrate Negative (Negative) 10/26/24 02:25 Urine Bilirubin Negative (Negative) 10/26/24 02:25 Urine Urobilinogen 1.0 mg/dL (Negative) 10/26/24 02:25 Ur Leukocyte Esterase Negative (Negative) 10/26/24 02:25 Urine RBC 0-2 /hpf (0-2) 10/26/24 02:25 Urine WBC 0-5 /hpf (0-5) 10/26/24 02:25 Ur Squamous Epith Cells 0-5 /hpf (0-5) 10/26/24 02:25 Amorphous Sediment Not Reportable 10/26/24 02:25 Urine Bacteria None seen /hpf (NONE) 10/26/24 02:25 Hyaline Casts 0-4 /lpf H 10/26/24 02:25 All radiology interpretation(s) finalized by discharge Discharge Plan Discharge Patient Disposition: Home Clinical Impression: Post-operative pain, Meralgia paresthetica of right side Condition: Stable Prescriptions: New ketorolac 10 mg tablet 10 mg PO TID PRN (Reason: pain) Qty: 10 0RF No Action ferrous sulfate [FeroSul] 325 mg (65 mg iron) tablet 325 mg PO DAILY biotin 2,500 mcg capsule 2,500 mcg PO DAILY Lacto no.05-Uq[place]uk-DGC-larch 25B cell-25B cell-50 mg capsule PO multivitamin Tablet 1 tab PO DAILY citalopram 20 mg tablet 20 mg PO DAILY Qty: 30 6RF cholecalciferol (vitamin D3) 50 mcg (2,000 unit) capsule 50 mcg PO DAILY Qty: 30 6RF oxycodone-acetaminophen [Percocet] 5-325 mg tablet 1 tab PO Q6H PRN (Reason: pain) Qty: 30 0RF Discharge Orders: Discharge ED (Routine); Ordered 10/26/24 Ordered By: Chay Jhaveri Referrals: Hamzah Fu MD [Physician, ROD POINTER] - 1-3 days Akin Olson MD [Primary Care Provider, Family Practice] Patient Instructions: Pain Management After Surgery (DC), Opioid Safety, Pain Management, Patient Portal & Ravindra Instructions Activity Restrictions/Additional Instructions: Alternate medication prescribed with medication you were prescribed after surgery. Ice may help the area that is tender. Return for fever greater than 100 ?F, vomiting liquids or medications, worsening pain despite treatment, any other concerning symptoms. Call your surgeon Monday and let them know you were seen here. They may wish to see you sooner than your scheduled appointment. Print Language: Slovak Coding Level of Care Code ED Cooker Pie Filling for Tom Hirsch
[2024-10-26 01:33] LABS: Hematocrit 38.0 % (36-47); Hemoglobin 12.50 g/dL (11.27-16.99); Mean Corpuscular HGB Conc 32.9 g/dL (30-55); Mean Corpuscular Hemoglobin 29.4 pg (27-33); Mean Corpuscular Volume 89.4 fl (85-98); Nucleated Red Blood Cells % 0 %; Platelet Count 165 10^3/cmm (157-399); Red Blood Count 4.25 10^6/uL (3.85-5.65); White Blood Count 7.22 10^3/uL (3.29-11.43)
[2024-10-26] MEDS: ondansetron 2 mg/ML SDV 2 mL 4 MG IVP (01:42)
[2024-10-26 01:44] VITALS: RESP 18; O2SAT 99
[2024-10-26] MEDS: morphine 4 mg/mL SDV 1 mL IVP ×2 (01:44→03:50)
[2024-10-26] MEDS: iohexol 350 mg/mL 500 mL Btl (per mL) IV (01:55)
[2024-10-26 01:58] LABS: Alanine Aminotransferase 17 U/L (0-33); Albumin Level 4.0 g/dL (3.5-5.2); Alkaline Phosphatase 74 U/L (35-105); Anion Gap 13.8 (5-19); Aspartate Amino Transferase 14 U/L (0-32); Blood Urea Nitrogen 12 mg/dL (6-20); Calcium 9.0 mg/dL (8.5-10.5); Carbon Dioxide 26 mmol/L (22-29); Chloride 101 mmol/L (98-107); Creatinine Clr Calc Pharmacy 151.1034; Globulin 3.0 g/dL (1.3-4.6); Glucose 103 mg/dL (65-115); Lactic Sepsis W/Reflex 0.6 mmol/L (0.5-2.2); Lipase 15 U/L (13-60); Osmolality Calculated 284 mOsm/kg (285-295); Potassium 3.8 mmol/L (3.5-5.1); Sodium 137 mmol/L (136-145); Total Protein 7.0 g/dL (6.6-8.7)
[2024-10-26 02:33] VITALS: BP 138/63; PULSE 76; O2SAT 96
[2024-10-26 02:40] LABS: Glucose Urine UA Negative (Normal); Nitrate Urine Negative (Negative)
[2024-10-26 02:45] LABS: Add Urine Microscopic? YES
[2024-10-26 02:48] LABS: Specific Gravity, Urine 1.039 (1.005-1.030)
[2024-10-26 03:50] VITALS: RESP 16; O2SAT 95
[2024-10-26 03:51] VITALS: BP 124/68; PULSE 73; RESP 16; O2SAT 95
[2024-10-26 04:10] VITALS: BP 120/65; PULSE 61; RESP 16; O2SAT 95
== END 2024-10-26 04:14 | disposition home or self-care (01) ==
PROVIDERS: Emergency Provider Emergency Medicine; PCP Family Medicine
DX: G89.18 Other acute postprocedural pain (principal); G57.11 Meralgia paresthetica, right lower limb; F17.290 Nicotine dependence, other tobacco product, uncomplicated
CPT/HCPCS: 36415; 74177; 80053; 81001; 83605; 83690; 85025; 86140; 96361; 96374; 96375; 96376; 99285; J1885; J2270; J2405; J7030

== ENCOUNTER 2024-10-30 07:36 | Emergency (ER) | payer OTHER, SELFPAY ==
[2024-10-30 07:39] VITALS: BP 158/102; PULSE 100; RESP 18; TEMP 36.7; O2SAT 100; BMI 34.0
[2024-10-30 08:00] VITALS: BP 152/89; PULSE 100; RESP 19; O2SAT 100
--- NOTE | 2024-10-30 08:00 | CT_ITS ---
WS: [id number] CT ABDOMEN PELVIS TECHNIQUE: Contrast-enhanced CT of the abdomen and pelvis with coronal and sagittal reformatted images. CLINICAL INFORMATION: abd pain/postop pain-hysterectomy COMPARISON: 10/26/2024 DLP: 1073.[address] scans at [facility] use at least one of these dose optimization techniques: automated exposure control; mA and/or kV adjustment per patient size (includes targeted exams where dose is matched to clinical indication); or iterative reconstruction. FINDINGS: Recent postoperative changes hysterectomy. Postoperative changes in the pelvis with a small amount of free fluid. No evidence of increasing fluid or abscess. No large hematoma in the hysterectomy bed. Induration in the pelvic subcutaneous soft tissues along the surgical site increased from previous. Correlation for cellulitis. Small amount of fluid in this area. Thickening and enhancement of the vaginal cuff presumably postoperative. No visualized large hematoma. Sigmoid diverticulosis. Normal appendix in the RIGHT lower quadrant. Fatty liver. Cholecystectomy. Normal spleen. Normal portal vein and splenic vein. Tiny esophageal hiatal hernia. Normal pancreatic parenchymal enhancement. Adrenal glands are normal. No hydronephrosis in either kidney. LEFT renal cyst. Lung bases are well aerated. Normal caliber abdominal aorta. Fat-containing umbilical hernia. IMPRESSION 1. Recent postoperative changes hysterectomy. No evidence of increasing free fluid or hematoma in the pelvis. Small amount of residual postoperative changes in the pelvis. 2. Induration in the subcutaneous soft tissues along the surgical site increased from previous with a small amount of fluid. Recommend correlation for cellulitis. 3. Thickening and enhancement of the vaginal cuff presumed postoperative. No visualized large hematoma. 4. No other significant changes compared to previous.
--- NOTE | 2024-10-30 08:02 | ED_ITS ---
HPI - Abdominal Pain 2 General: Chief Complaint: Vaginal Bleeding Stated Complaint: 8 days post op hysterectomy, bleeding, abd pain Time Seen by Provider: 10/30/24 07:39 History of Present Illness: 29-year-old female presents emergency ro om with complaints of abdominal pain and vaginal bleeding. She is 8 days postop Total abdominal hysterectomy. She began to have pain and cramping overnight she is constipated over the weekend and was seen in the emergency room She states she is passing clots per vagina. She denies any dysuria urgency or frequency no fever sweats or chills. Total abdominal hysterectomy was done for menorrhagia. Associated Symptoms: Reports constipation and nausea; Denies chills, dysuria, fever(s) and vomiting Related Data Home Medications ?Medication ?Instructions ?Recorded ?Confirmed multivitamin 1 tab PO DAILY 06/05/2410/05 biotin 2,500 mcg capsule 2,500 mcg PO DAILY 07/25/24 10/30/24 ferrous sulfate 325 mg (65 mg 325 mg PO DAILY 07/25/24 10/30/24 iron) tablet (FeroSul) Previous Rx's ?Medication ?Instructions ?Recorded cholecalciferol (vitamin D3) 50 50 mcg PO DAILY #30 ca ps 06/18/24 mcg (2,000 unit) capsule citalopram 20 mg tablet 20 mg PO DAILY #30 tabs 0509/27 ketorolac 10 mg tablet 10 mg PO TID PRN pain #10 ta bs 10/26/24 hydrocodone 5 mg-acetaminophen 325 1 tab PO Q6H PRN pa in #15 tabs 10/30/24 mg tablet lactulose 10 gram/15 mL oral 30 ml PO Q2H PRN constipa tion 72 10/30/24 solution (Generlac) hours #1,080 mL polyethylene glycol 3350 17 17 g PO DAILY #850 grams 0 10/30/24 gram/dose oral powder (Miralax) Allergies Allergy/AdvReac Type Severity Reaction Status Date / Time promethazine (From Phenergan) Allergy ALGY-Anaphy Verified 10/30/24 10:38 laxis Review of Systems 2 Const: Denies: fever(s) or chills Card: Denies: chest pain Resp: Denies: dyspnea GI: Reports: abdominal pain, nausea and constipation; Denies: vomiting : Reports: vaginal bleeding; Denies: dysuria, urinary frequency or urinary urgency Musc: Denies: neck pain or back pain Skin/Breast: Denies: rash PFSH ED 2 PFSH: Medical History No significant past medical history Surgical History History of dilation and curettage History of tubal ligation 05/2017 - Albino History of cholecystectomy 2008 No significant past surgical history Family History Grandmother Uterine cancer Social History Smoking and tobacco/nicotine status: current every day tobacco/nicotine user (vape, marijuana) e-cigarettes Alcohol intake: current Alcohol intake frequency: holidays/special occasions only Substance/Drug Use: current Current occupation: Works at [employer] Physical Exam 2 Const: GENERAL APPEARANCE: cooperative ORIENTATION/CONSCIOUSNESS: Yes awake, Yes oriented to person, Yes oriented to place and Yes oriented to time HENMT: COMMON NORMALS: normocephalic, atraumatic and hearing grossly normal bilaterally HEAD & SCALP: normocephalic and atraumatic Resp: COMMON NORMALS: normal respiratory effort, No retractions, No use of accessory muscles and clear to auscultation bilaterally AUSCULTATION: clear to auscultation bilaterally Cardio: COMMON NORMALS: regular rate, regular rhythm and No murmurs present (Cardio) RATE: regular rate RHYTHM: regular rhythm GI: COMMON NORMALS: No hepatosplenomegaly present AUSCULTATION: Yes normoactive bowel sounds PALPATION: Yes Tenderness to palpation present (GI) (Diffuse), No Guarding due to palpation present (GI) and Yes No hepatosplenomegaly present OTHER: Examination the incision skin edges well-approximated no sign of dehiscence no bleeding no redness no induration no drainage Extremity: COMMON NORMALS: normal to inspection, capillary refill normal, no clubbing, cyanosis or edema, no calf tenderness and no pedal edema Neuro: SENSORIUM/ORIENTATION: Yes oriented to person, Yes oriented to place and Yes oriented to time Skin: COMMON NORMALS: no rashes or lesions noted GENERAL SKIN EXAM: no rashes or lesions noted Course 2 Vital Signs: Vital signs: Vital Signs Temperature 98.0 F 10/30/24 07:39 Pulse Rate 79 10/30/24 10:05 Respiratory Rate 19 H 10/30/24 10:05 Blood Pressure 131/82 10/30/24 10:05 Pulse Oximetry 99 10/30/24 10:05 Oxygen Delivery Me thod Room Air 10/30/24 07:39 MDM - Abdominal Pain Medical Decision Making Hemoglobin stable. CT did not show any acute abnormalities there was comment on the CT about increasing fat stranding deep to the incision. On the visual exam there is no sign of dehiscence redness erythema induration it is moderately tender there is no fluctuance no drainage from the wound. Consulted with Dr. Fu via phone he is on-call and this is his postop patient. He does not recommend any changes given the labs and CT findings. We discussed the CT findings of about the subcutaneous fat given her normal white count lack of fever and normal physical exam we both agree not to start on antibiotics at this time. Dr. Fu asked the patient be discharged and follow-up in the office in the next 1 to 2 days. Medical Records I reviewed the patient's medical records. Lab Data I reviewed the patient's lab results. 10/30/24 07:57 10/30/24 07:57 Labs/Radiology: Laboratory Results WBC 8.45 10^3/uL (3.29-11.43) 10/30/24 07:57 RBC 4.77 10^6/uL (3.85-5.65) 10/30/24 07:57 Hgb 14.00 g/dL (11.27-16.99) 10/30/24 07:57 Hct 42.6 % (36-47) 10/30/24 07:57 MCV 89.3 fl (85-98) 10/30/24 07:57 MCH 29.4 pg (27-33) 10/30/24 07:57 MCHC 32.9 g/dL (30-55) 10/30/24 07:57 RDW 11.9 % (12.1-15.1) L 10/30/24 07:57 Plt Count 242 10^3/cmm (157-399) 10/30/24 07:57 MPV 10.9 fL (7.4-10.4) H 10/30/24 07:57 Neut % (Auto) 73.6 % 10/30/24 07:57 Lymph % (Auto) 15.4 % 10/30/24 07:57 [place] % (Auto) 5.0 % 10/30/24 07:57 Eos % (Auto) 5.0 % 10/30/24 07:57 Baso % (Auto) 0.6 % 10/30/24 07:57 Neut # (Auto) 6.23 10^3/uL (1.8-7.7) 10/30/24 07:57 Lymph # (Auto) 1.3 10^3/uL (0.8-4.8) 10/30/24 07:57 [place] # (Auto) 0.4 10^3/uL (0.2-0.9) 10/30/24 07:57 Eos # (Auto) 0.4 10^3/uL (0.0-0.8) 10/30/24 07:57 Baso # (Auto) 0.1 10^3/uL (0.0-0.1) 10/30/24 07:57 Nucleated RBC % (auto) 0 % 10/30/24 07:57 Nucleated RBCs # 0.0 /100WBC 10/30/24 07:57 Sodium 137 mmol/L (136-145) 10/30/24 07:57 Potassium 4.1 mmol/L (3.5-5.1) 10/30/24 07:57 Chloride 102 mmol/L (98-107) 10/30/24 07:57 Carbon Dioxide 28 mmol/L (22-29) 10/30/24 07:57 Anion Gap 11.1 (5-19) 10/30/24 07:57 BUN 9 mg/dL (6-20) 10/30/24 07:57 Creatinine 0.8 mg/dL (0.5-0.9) 10/30/24 07:57 GFR Calculation 84.2 mL/min (90-130) L 10/30/24 07:57 Glucose 101 mg/dL (65-115) 10/30/24 07:57 Calculated Osmolality 283 mOsm/kg (285-295) L 10/30/24 07:57 Calcium 9.4 mg/dL (8.5-10.5) 10/30/24 07:57 Total Bilirubin 0.4 mg/dL (0.15-1.2) 10/30/24 07:57 AST 23 U/L (0-32) 10/30/24 07:57 ALT 23 U/L (0-33) 10/30/24 07:57 Alkaline Phosphatase 105 U/L (35-105) 10/30/24 07:57 Total Protein 7.8 g/dL (6.6-8.7) 10/30/24 07:57 Albumin 4.4 g/dL (3.5-5.2) 10/30/24 07:57 Globulin 3.4 g/dL (1.3-4.6) 10/30/24 07:57 Urine Color Yellow (Yellow) 10/30/24 08:07 Urine Appearance Clear (CLEAR) 10/30/24 08:07 Urine pH 8.0 (5-7) A 10/30/24 08:07 Ur Specific [place] 1.014 (1.005-1.030) 10/30/24 08:07 Urine Protein Negative (Negative) 10/30/24 08:07 Urine Glucose (UA) Negative (Normal) 10/30/24 08:07 Urine Ketones Negative (Negative) 10/30/24 08:07 Urine Blood Negative (Negative) 10/30/24 08:07 Urine Nitrate Negative (Negative) 10/30/24 08:07 Urine Bilirubin Negative (Negative) 10/30/24 08:07 Urine Urobilinogen 1.0 mg/dL (Negative) 10/30/24 08:07 Ur Leukocyte Esterase Trace (Negative) A 10/30/24 08:07 Urine RBC 0-2 /hpf (0-2) 10/30/24 08:07 Urine WBC 0-5 /hpf (0-5) 10/30/24 08:07 Ur Squamous Epith Cells 0-5 /hpf (0-5) 10/30/24 08:07 Amorphous Sediment Not Reportable 10/30/24 08:07 Urine Bacteria None seen /hpf (NONE) 10/30/24 08:07 Hyaline Casts 0.81 /lpf 10/30/24 08:07 All radiology interpretation(s) finalized by discharge Discharge Plan Discharge Patient Disposition: Home Clinical Impression: Post-operative pain, Abnormal vaginal bleeding Condition: Stable Prescriptions: New lactulose [Generlac] 10 gram/15 mL solution 30 ml PO Q2H PRN (Reason: constipation) 3 Days Qty: 1080 0RF Rx Instructions: until desired laxative effect polyethylene glycol 3350 [Miralax] 17 gram/dose powder 17 g PO DAILY Qty: 850 0RF hydrocodone-acetaminophen 5-325 mg tablet 1 tab PO Q6H PRN (Reason: pain) Qty: 15 0RF No Action ferrous sulfate [FeroSul] 325 mg (65 mg iron) tablet 325 mg PO DAILY biotin 2,500 mcg capsule 2,500 mcg PO DAILY multivitamin Tablet 1 tab PO DAILY citalopram 20 mg tablet 20 mg PO DAILY Qty: 30 6RF cholecalciferol (vitamin D3) 50 mcg (2,000 unit) capsule 50 mcg PO DAILY Qty: 30 6RF ketorolac 10 mg tablet 10 mg PO TID PRN (Reason: pain) Qty: 10 0RF Discharge Orders: Discharge ED (Routine); Ordered 10/30/24 Ordered By: Filippo Lane Referrals: Akin Olson MD [Primary Care Provider, Family Practice] Discharge Diet: Usual diet Discharge Activity: Limit activity as instructed Patient Instructions: Opioid Safety, Pain Management, Patient Portal & Ravindra Instructions Activity Restrictions/Additional Instructions: Thank you for choosing [facility] for your healthcare needs today. It is very important that you follow up as instructed or that you return to the Emergency Department should you have concerns or if your condition changes or worsens in any way. You were seen in the emergency room with complaints of vaginal bleeding after hysterectomy. CT did not show signs of any major abnormality at this time. Your hemoglobin is stable. I discussed your case with Dr. Fu he would like to see you in the office. You can go to his office today or tomorrow for follow- up. For your constipation you can get further relief of constipation with the lactulose that was prescribed today. Recommend you start MiraLAX 17 g once a day to prevent further constipation. You are given hydrocodone to use for pain it is less potent than the Percocet -and can have less side effects. Print Language: Macedonian Coding Level of Care Code ED Logistics Clerk for Tom Hirsch
[2024-10-30 08:03] LABS: Hematocrit 42.6 % (36-47); Hemoglobin 14.00 g/dL (11.27-16.99); Mean Corpuscular HGB Conc 32.9 g/dL (30-55); Mean Corpuscular Hemoglobin 29.4 pg (27-33); Mean Corpuscular Volume 89.3 fl (85-98); Nucleated Red Blood Cells % 0 %; Platelet Count 242 10^3/cmm (157-399); Red Blood Count 4.77 10^6/uL (3.85-5.65); White Blood Count 8.45 10^3/uL (3.29-11.43)
[2024-10-30 08:17] LABS: Glucose Urine UA Negative (Normal); Nitrate Urine Negative (Negative); Specific Gravity, Urine 1.014 (1.005-1.030)
[2024-10-30 08:22] LABS: Add Urine Microscopic? YES
[2024-10-30 08:23] LABS: Alanine Aminotransferase 23 U/L (0-33); Albumin Level 4.4 g/dL (3.5-5.2); Alkaline Phosphatase 105 U/L (35-105); Anion Gap 11.1 (5-19); Aspartate Amino Transferase 23 U/L (0-32); Blood Urea Nitrogen 9 mg/dL (6-20); Calcium 9.4 mg/dL (8.5-10.5); Carbon Dioxide 28 mmol/L (22-29); Chloride 102 mmol/L (98-107); Creatinine Clr Calc Pharmacy 132.2155; Globulin 3.4 g/dL (1.3-4.6); Glucose 101 mg/dL (65-115); Osmolality Calculated 283 mOsm/kg (285-295); Potassium 4.1 mmol/L (3.5-5.1); Sodium 137 mmol/L (136-145); Total Protein 7.8 g/dL (6.6-8.7)
[2024-10-30] MEDS: iohexol 350 mg/mL 500 mL Btl (per mL) IV (08:40)
[2024-10-30 08:54] LABS: UA Slide Review UA Slide Review Perf
[2024-10-30 09:00] VITALS: BP 144/87; PULSE 77; RESP 22; O2SAT 97
[2024-10-30] MEDS: ondansetron 2 mg/ML SDV 2 mL 4 MG IVP (09:07)
[2024-10-30 09:09] VITALS: RESP 19
[2024-10-30] MEDS: morphine 4 mg/mL SDV 1 mL IVP (09:09)
[2024-10-30 09:30] VITALS: BP 160/96; PULSE 79; RESP 19; O2SAT 100
[2024-10-30 10:05] VITALS: BP 131/82; PULSE 79; RESP 19; O2SAT 99
== END 2024-10-30 10:05 | disposition home or self-care (01) ==
PROVIDERS: Emergency Provider Family Medicine; PCP Family Medicine
DX: N99.820 Postprocedural hemorrhage of a genitourinary system organ or structure following a genitourinary system procedure (principal); G89.18 Other acute postprocedural pain; F17.290 Nicotine dependence, other tobacco product, uncomplicated; Z98.890 Other specified postprocedural states; F12.90 Cannabis use, unspecified, uncomplicated
CPT/HCPCS: 36415; 74177; 80053; 81001; 85025; 87040; 96361; 96374; 96375; 99285; J2270; J2405; J7030

== ENCOUNTER → 2024-12-04 17:52 | Outpatient (BNVA) | payer OTHER, SELFPAY | PROVIDERS: PCP Family Medicine; Visit Provider Nurse Practitioner | DX: R39.9 Unspecified symptoms and signs involving the genitourinary system (principal) | CPT/HCPCS: 81000; 87086 ==

== ENCOUNTER → 2024-12-12 14:45 | Outpatient (BNVA) | payer OTHER, SELFPAY | PROVIDERS: PCP Family Medicine; Visit Provider Obstetrics & Gynecology | DX: R32 Unspecified urinary incontinence (principal) | CPT/HCPCS: 84315; 87086 ==